=== PATIENT | female | born 1970 | race Caucasian/White ===

== ENCOUNTER 2021-11-27 06:17 | Emergency (ER) | payer SELFPAY ==
[~2021-11-27] VITALS: Ht 170.2 cm; Wt 77.1 kg
[2021-11-27 06:24] VITALS: BP 150/90
[2021-11-27] MEDS ORDERED: KETOROLAC 60 MG/2 ML VIAL IM ONE ×2 (07:05→07:08)
[2021-11-27] MEDS ORDERED: IBUP-2213 PO (07:47)
[2021-11-27] MEDS ORDERED: ACET-8386 PO (07:47)
[2021-11-27 07:50] VITALS: BP 150/90
== END 2021-11-27 07:50 | disposition home or self-care (01) ==
LOC: MED 06:17
DX: S80.01XA Contusion of right knee, initial encounter (principal); Z88.2 Allergy status to sulfonamides; Z88.8 Allergy status to other drugs, medicaments and biological substances; Z72.89 Other problems related to lifestyle; W18.30XA Fall on same level, unspecified, initial encounter; Y93.89 Activity, other specified; Y92.89 Other specified places as the place of occurrence of the external cause; Y99.8 Other external cause status
CPT/HCPCS: 73562; 96372; 99283; J1885; Q0092

== ENCOUNTER 2022-04-22 10:17 | Emergency (ER) | payer SELFPAY ==
[~2022-04-22] VITALS: Ht 170.2 cm; Wt 78.9 kg
[~2022-04-22 10:17] MED LIST: ACET-8905 PO; IBUP-2213 PO
[2022-04-22 10:21] VITALS: BP 126/82
--- NOTE | 2022-04-22 10:25 | NUR ---
PT AMB TO BED 7.
--- NOTE | 2022-04-22 10:30 | NUR ---
51YO FEMALE PT C/O BURNING LOWER ABDOMINAL AND SHARP R FLANK PAIN XYESTERDAY. ABDOMEN NON TENDER OR DISTENDED. DENIES RECENT INJURY, TAKING MEDICATION, DYSURA, N/V/D, FEVER OR CHILLS. PT AAOX4, NO VISIBLE DISTRESS. HOB POSITIONED PER COMFORT HX:HYPOTHYROID ALLERGIES: SULFA
--- NOTE | 2022-04-22 10:49 | NUR ---
MD MIGUEL AT BEDSIDE FOR EVALUATION
--- NOTE | 2022-04-22 11:22 | NUR ---
LAB AT BEDSIDE
[2022-04-22 11:31] LABS: BILIRUBIN,URINE NEGATIVE (NEGATIVE); BLOOD, URINE NEGATIVE (NEGATIVE); COLOR,URINE YELLOW (YELLOW); LEUKOCYTE ESTERASE ,URINE TRACE (NEGATIVE); NITRITE, URINE NEGATIVE (NEGATIVE); PH,URINE 5.5 (5.0-9.0); UGLUCOSE NEGATIVE (NEGATIVE)
[2022-04-22 11:36] LABS: BASOPHILS # (AUTO) 0.1 K/uL (0.00-0.22); BASOPHILS % (AUTO) 0.9 % (0.0-2.0); EOSINOPHILS # (AUTO) 0.2 K/uL (0-0.4); EOSINOPHILS % (AUTO) 3.5 % (0.0-4.0); HEMATOCRIT 42.1 % (36-48); HEMOGLOBIN 13.9 g/dL (12.0-16.0); LYMPHOCYTES # (AUTO) 1.9 K/uL (2.5-16.5); LYMPHOCYTES % (AUTO) 29.1 % (20.5-51.1); MEAN CORPUSCULAR HEMOGLOBIN 31 pg (27-31); MEAN CORPUSCULAR HGB CONC 33 g/dL (33-37); MEAN CORPUSCULAR VOLUME 93.1 fL (80-94); MONOCYTES # (AUTO) 0.4 K/uL (0.8-1.0); NEUTROPHILS % (AUTO) 60.5 % (42.2-75.2); PLATELET COUNT (AUTO) 306 K/uL (140-450); RED BLOOD CELL COUNT(AUTO) 4.52 MIL/uL (4.20-5.40); RED CELL DISTRIBUTION WIDTH 14.9 % (11.6-13.7); WHITE BLOOD COUNT (AUTO) 6.7 K/uL (4.8-10.8)
[2022-04-22 11:49] LABS: ALBUMIN 3.8 g/dL (3.4-5.0); CARBON DIOXIDE 28.7 mmol/L (21-32); CREATININE 0.9 mg/dL (0.6-1.3); POTASSIUM 3.7 mmol/L (3.5-5.1); TOTAL BILIRUBIN 0.5 mg/dL (0.0-1.0)
[2022-04-22 11:53] LABS: APPEARANCE,URINE HAZY (CLEAR); RBC,URINE NONE SEEN /HPF (0-5); WBC,URINE 0-5 /HPF (0-5)
--- NOTE | 2022-04-22 12:17 | NUR ---
Patient discharged with v/s stable. verbal after care instructions FOR FLANK PAIN given and explained. Patient verbalized understanding. Ambulatory with steady gait. All questions addressed prior to discharge. Advised to follow up with PMD. LEFT W/O PAPERWORK
--- NOTE | 2022-04-22 12:47 | NUR ---
The patient's care was reviewed and supervised by [facility], RN.
== END 2022-04-22 12:17 | disposition home or self-care (01) ==
LOC: MED 10:17
DX: R10.9 Unspecified abdominal pain (principal)
CPT/HCPCS: 36415; 80053; 81001; 81025; 83690; 85025; 99283

== ENCOUNTER 2022-04-26 13:11 | Emergency (ER) | payer OTHER ==
[~2022-04-26] VITALS: Ht 170.2 cm; Wt 77.7 kg
[2022-04-26 13:13] VITALS: BP 134/79
--- NOTE | 2022-04-26 13:21 | NUR ---
C/O RIGHT LOWER BACK RASH & PAIN X YESTERDAY.
[2022-04-26] MEDS ORDERED: PRED20TA5 PO (13:24)
[2022-04-26] MEDS ORDERED: IBUP-1842 PO (13:24)
[2022-04-26] MEDS ORDERED: CEPH-588 PO (13:24)
[2022-04-26] MEDS ORDERED: ACYC-278 PO (13:24)
[2022-04-26 13:30] VITALS: BP 134/79
--- NOTE | 2022-04-26 13:30 | NUR ---
Patient discharged with v/s stable. Written and verbal after care instructions given and explained. Patient alert, oriented and verbalized understanding of instructions. Ambulatory with steady gait. All questions addressed prior to discharge. ID band removed. Patient advised to follow up with PMD. Rx of ACYCOVIA, MOTRIN, DELTASONE, KEFLEX given. Patient educated on indication of medication including possible reaction and side effects. Opportunity to ask questions provided and answered.
== END 2022-04-26 13:30 | disposition home or self-care (01) ==
LOC: MED 13:11
DX: L03.312 Cellulitis of back [any part except buttock and flank] (principal); B02.9 Zoster without complications; E03.9 Hypothyroidism, unspecified; Z88.2 Allergy status to sulfonamides; Z88.8 Allergy status to other drugs, medicaments and biological substances
CPT/HCPCS: 99283

== ENCOUNTER 2022-05-10 01:35 | Emergency (ER) | payer OTHER ==
[~2022-05-10] VITALS: Ht 170.2 cm; Wt 77.1 kg
[~2022-05-10 01:35] MED LIST changes: +ACYC-278 PO; +CEPH-588 PO; +IBUP-1842 PO; +PRED20TA5 PO
[2022-05-10 01:41] VITALS: BP 122/65
[2022-05-10 03:00] LABS: APPEARANCE,URINE HAZY (CLEAR); BILIRUBIN,URINE NEGATIVE (NEGATIVE); BLOOD, URINE 2+ (NEGATIVE); COLOR,URINE YELLOW (YELLOW); LEUKOCYTE ESTERASE ,URINE 1+ (NEGATIVE); NITRITE, URINE NEGATIVE (NEGATIVE); PH,URINE 6.5 (5.0-9.0); UGLUCOSE NEGATIVE (NEGATIVE)
[2022-05-10 03:18] LABS: RBC,URINE 0-5 /HPF (0-5)
--- NOTE | 2022-05-10 03:24 | NUR ---
Dr. Denny examining patient.
[2022-05-10] MEDS ORDERED: diphenhydrAMINE 50 MG/ML VIAL IM ONE (03:30)
[2022-05-10 04:57] LABS: BARBITURATE, URINE NEGATIVE ng/ml (NEG <=200); BENZODIAZEPINE, URINE NEGATIVE ng/mL (NEG <=200); CANNABINOID, URINE POSITIVE ng/mL (NEG <=50); COCAINE, URINE NEGATIVE ng/mL (NEG <=300); OPIATE, URINE NEGATIVE ng/mL (NEG <=2000); PHENCYCLIDINE SCREEN,URINE NEGATIVE ng/mL (NEG <=25)
[2022-05-10] MEDS ORDERED: DIPH25TA53 PO (05:11)
[2022-05-10 05:22] VITALS: BP 122/65
[2022-05-10] MEDS ORDERED: NITR100C7 PO (05:28)
--- NOTE | 2022-05-10 05:33 | NUR ---
Patient discharged with v/s stable. Written and verbal after care instructions given and explained. Patient alert, oriented and verbalized understanding of instructions. Ambulatory with steady gait. All questions addressed prior to discharge. ID band removed. Patient advised to follow up with PMD. Rx of BENADRYL, MACROBID given. Patient educated on indication of medication including possible reaction and side effects. Opportunity to ask questions provided and answered.
== END 2022-05-10 05:33 | disposition home or self-care (01) ==
LOC: MED 01:35
DX: R21 Rash and other nonspecific skin eruption (principal); E03.9 Hypothyroidism, unspecified
CPT/HCPCS: 80305; 81001; 87086; 96372; 99283; J1200

== ENCOUNTER 2023-02-08 10:37 | Emergency (ER) | payer OTHER ==
[~2023-02-08] VITALS: Ht 170.2 cm; Wt 79.4 kg
[~2023-02-08 10:37] MED LIST changes: +DIPH25TA53 PO; +NITR100C7 PO
[2023-02-08 10:50] VITALS: PULSE 81; RESP 15; TEMP 97.6; O2SAT 99
[2023-02-08] MEDS ORDERED: KETOROLAC 30 MG/ML VIAL IM ONE (12:25)
== END 2023-02-08 14:00 | disposition home or self-care (01) ==
LOC: MED 10:37
DX: S80.12XA Contusion of left lower leg, initial encounter (principal); S83.92XA Sprain of unspecified site of left knee, initial encounter; E07.9 Disorder of thyroid, unspecified; Z88.1 Allergy status to other antibiotic agents; Z88.2 Allergy status to sulfonamides; Z79.899 Other long term (current) drug therapy; V29.91XA Electric (assisted) bicycle rider (driver) (passenger) injured in unspecified traffic accident, initial encounter; Y93.89 Activity, other specified; Y92.89 Other specified places as the place of occurrence of the external cause; Y99.8 Other external cause status
CPT/HCPCS: 29505; 73562; 73630; 96372; 99284; J1885